=== PATIENT | female | born 1940 | race Caucasian/White ===

== ENCOUNTER 2016-08-10 07:15 | Outpatient (CLI) ==
[2016-04-07 10:59] VITALS: BMI 24.0
[2016-08-10 07:44] LABS: BASOPHILS # (AUTO) 0.1 K/uL (0-0.2); BASOPHILS % (AUTO) 0.9 % (0.0-3.0); EOSINOPHILS # (AUTO) 0.7 K/ul (0.0-0.7); EOSINOPHILS % (AUTO) 6.9 % (0.0-7.0); HEMATOCRIT 35.3 % (37.0-47.0); HEMOGLOBIN 11.2 g/dl (12.0-16.0); IMMATURE GRANULOCYTE % (AUTO) 0.2 % (0.0-5.0); LYMPHOCYTES # (AUTO) 2.5 K/uL (0.60-3.4); LYMPHOCYTES % (AUTO) 25.9 (10.0-50.0); MEAN CORPUSCULAR HEMOGLOBIN 29.8 pg (27.0-31.0); MEAN CORPUSCULAR HGB CONC 31.7 (31.8-35.4); MEAN CORPUSCULAR VOLUME 93.9 fl (81.0-99.0); MONOCYTES # (AUTO) 0.5 K/uL (0.4-2.0); MONOCYTES % (AUTO) 5.2 (0-10); NEUTROPHILS # (AUTO) 5.9 K/ul (2.0-6.9); NEUTROPHILS % (AUTO) 60.9; PLATELET COUNT 364 10^3/uL (140-440); RED BLOOD COUNT 3.76 10^6/ul (4.20-5.40); WHITE BLOOD COUNT 9.73 K/ul (4.6-10.2)
[2016-08-10 07:57] LABS: BILIRUBIN,URINE Negative (NEGATIVE); KETONES,URINE Negative (NEGATIVE); LEUKOCYTE ESTERASE ,URINE Trace (NEGATIVE); NITRITE,URINE Negative (NEGATIVE); PROTEIN,URINE Negative (NEGATIVE); URINE, BLOOD Negative (NEGATIVE)
[2016-08-10 07:59] LABS: ADD URINE MICROSCOPIC YES
[2016-08-10 08:01] LABS: ALBUMIN 3.4 g/dL (3.4-5.0); ALBUMIN/GLOBULIN RATIO 0.94; ANION GAP 15.9; BILIRUBIN,TOTAL 0.23 mg/dL (0.00-1.20); BUN/CREATININE RATIO 9.39; CALCIUM 9.1 mg/dL (8.2-10.2); CHOL/HDL RATIO 4.7 (4.5-5.5); CREATININE 1.49 mg/dL (0.60-1.30); POTASSIUM 3.9 mmol/L (3.5-5.10)
== END 2016-08-10 07:16 | disposition home or self-care (01) ==
LOC: LAB 07:15
PROVIDERS: ATTEND Family Medicine
DX: E78.5 Hyperlipidemia, unspecified (principal); I10 Essential (primary) hypertension; I25.10 Atherosclerotic heart disease of native coronary artery without angina pectoris; E87.6 Hypokalemia; E55.9 Vitamin D deficiency, unspecified; N39.0 Urinary tract infection, site not specified; N18.9 Chronic kidney disease, unspecified; D63.1 Anemia in chronic kidney disease
CPT/HCPCS: 36415; 80053; 80061; 81001; 82306; 85025

== ENCOUNTER 2016-09-09 06:24 | Outpatient (CLI) ==
[2016-04-07 10:59] VITALS: BMI 24.0
[2016-09-09 06:43] LABS: BASOPHILS # (AUTO) 0.1 K/uL (0-0.2); BASOPHILS % (AUTO) 0.7 % (0.0-3.0); EOSINOPHILS # (AUTO) 0.4 K/ul (0.0-0.7); EOSINOPHILS % (AUTO) 3.9 % (0.0-7.0); HEMATOCRIT 32.5 % (37.0-47.0); HEMOGLOBIN 10.8 g/dl (12.0-16.0); IMMATURE GRANULOCYTE % (AUTO) 0.3 % (0.0-5.0); LYMPHOCYTES # (AUTO) 2.8 K/uL (0.60-3.4); LYMPHOCYTES % (AUTO) 30.6 (10.0-50.0); MEAN CORPUSCULAR HGB CONC 33.2 (31.8-35.4); MEAN CORPUSCULAR VOLUME 90.3 fl (81.0-99.0); MONOCYTES # (AUTO) 0.8 K/uL (0.4-2.0); MONOCYTES % (AUTO) 8.3 (0-10); NEUTROPHILS # (AUTO) 5.1 K/ul (2.0-6.9); NEUTROPHILS % (AUTO) 56.2; PLATELET COUNT 344 10^3/uL (140-440); WHITE BLOOD COUNT 9.12 K/ul (4.6-10.2)
[2016-09-09 06:44] LABS: BILIRUBIN,URINE Negative (NEGATIVE); KETONES,URINE Negative (NEGATIVE); LEUKOCYTE ESTERASE ,URINE Trace (NEGATIVE); NITRITE,URINE Negative (NEGATIVE); PH,URINE 5.5 (5-9); PROTEIN,URINE Negative (NEGATIVE); URINE, BLOOD Negative (NEGATIVE)
[2016-09-09 06:45] LABS: ADD URINE MICROSCOPIC YES
[2016-09-09 06:50] LABS: BACTERIA,URINE TRACE (NOT PRESENT)
[2016-09-09 07:01] LABS: ALBUMIN/GLOBULIN RATIO 0.86; ANION GAP 16.5; BILIRUBIN,TOTAL 0.3 mg/dL (0.00-1.20); BUN/CREATININE RATIO 13.79; CALCIUM 9.1 mg/dL (8.2-10.2); CHOL/HDL RATIO 4.9 (4.5-5.5); CREATININE 1.45 mg/dL (0.60-1.30); POTASSIUM 3.5 mmol/L (3.5-5.10); TOTAL PROTEIN 6.5 g/dL (5.8-8.1)
== END 2016-09-09 06:25 | disposition home or self-care (01) ==
LOC: LAB 06:24
PROVIDERS: ATTEND Family Medicine
DX: I10 Essential (primary) hypertension (principal); E78.5 Hyperlipidemia, unspecified; I25.10 Atherosclerotic heart disease of native coronary artery without angina pectoris; N18.9 Chronic kidney disease, unspecified; I73.9 Peripheral vascular disease, unspecified; R73.9 Hyperglycemia, unspecified; Z79.899 Other long term (current) drug therapy
CPT/HCPCS: 36415; 80053; 80061; 81001; 85025

== ENCOUNTER 2016-10-01 06:03 | Outpatient (CLI) ==
[2016-04-07 10:59] VITALS: BMI 24.0
[2016-10-01 06:41] LABS: BASOPHILS # (AUTO) 0.1 K/uL (0-0.2); BASOPHILS % (AUTO) 0.8 % (0.0-3.0); EOSINOPHILS # (AUTO) 0.7 K/ul (0.0-0.7); EOSINOPHILS % (AUTO) 6.9 % (0.0-7.0); HEMATOCRIT 32.7 % (37.0-47.0); HEMOGLOBIN 10.7 g/dl (12.0-16.0); IMMATURE GRANULOCYTE % (AUTO) 0.4 % (0.0-5.0); LYMPHOCYTES # (AUTO) 2.7 K/uL (0.60-3.4); MEAN CORPUSCULAR HEMOGLOBIN 30.1 pg (27.0-31.0); MEAN CORPUSCULAR HGB CONC 32.7 (31.8-35.4); MEAN CORPUSCULAR VOLUME 91.9 fl (81.0-99.0); MONOCYTES # (AUTO) 0.6 K/uL (0.4-2.0); MONOCYTES % (AUTO) 5.6 (0-10); NEUTROPHILS # (AUTO) 6.3 K/ul (2.0-6.9); NEUTROPHILS % (AUTO) 60.3; PLATELET COUNT 371 10^3/uL (140-440); RED BLOOD COUNT 3.56 10^6/ul (4.20-5.40); WHITE BLOOD COUNT 10.47 K/ul (4.6-10.2)
[2016-10-01 07:02] LABS: BILIRUBIN,URINE Negative (NEGATIVE); KETONES,URINE Negative (NEGATIVE); LEUKOCYTE ESTERASE ,URINE Negative (NEGATIVE); NITRITE,URINE Negative (NEGATIVE); PH,URINE 5.5 (5-9); PROTEIN,URINE Negative (NEGATIVE); URINE, BLOOD Negative (NEGATIVE)
[2016-10-01 07:08] LABS: ADD URINE MICROSCOPIC NO
[2016-10-01 07:34] LABS: BILIRUBIN,TOTAL 0.24 mg/dL (0.00-1.20); CALCIUM 8.8 mg/dL (8.2-10.2)
[2016-10-01 10:36] LABS: ALBUMIN/GLOBULIN RATIO 0.94; BUN/CREATININE RATIO 9.84; CREATININE 1.32 mg/dL (0.60-1.30); TOTAL PROTEIN 6.2 g/dL (5.8-8.1)
[2016-10-01 11:17] LABS: CHOL/HDL RATIO 4.7 (4.5-5.5)
== END 2016-10-01 06:04 | disposition home or self-care (01) ==
LOC: CAR 06:03
PROVIDERS: ATTEND Family Medicine
DX: R53.1 Weakness (principal); E78.5 Hyperlipidemia, unspecified; I10 Essential (primary) hypertension; R73.9 Hyperglycemia, unspecified; E55.9 Vitamin D deficiency, unspecified; N18.9 Chronic kidney disease, unspecified; D63.1 Anemia in chronic kidney disease; I25.10 Atherosclerotic heart disease of native coronary artery without angina pectoris; R19.7 Diarrhea, unspecified
CPT/HCPCS: 80053; 80061; 81001; 82306; 84439; 84443; 85025; 93005; 93010

== ENCOUNTER 2016-11-09 09:00 | Outpatient (CLI) ==
[2016-04-07 10:59] VITALS: BMI 24.0
[2016-11-09 09:13] LABS: BASOPHILS # (AUTO) 0.1 K/uL (0-0.2); BASOPHILS % (AUTO) 1.2 % (0.0-3.0); EOSINOPHILS % (AUTO) 11.2 % (0.0-7.0); HEMATOCRIT 33.4 % (37.0-47.0); HEMOGLOBIN 11.1 g/dl (12.0-16.0); IMMATURE GRANULOCYTE % (AUTO) 0.3 % (0.0-5.0); LYMPHOCYTES # (AUTO) 2.4 K/uL (0.60-3.4); LYMPHOCYTES % (AUTO) 25.7 (10.0-50.0); MEAN CORPUSCULAR HEMOGLOBIN 30.7 pg (27.0-31.0); MEAN CORPUSCULAR HGB CONC 33.2 (31.8-35.4); MEAN CORPUSCULAR VOLUME 92.5 fl (81.0-99.0); MONOCYTES # (AUTO) 0.6 K/uL (0.4-2.0); MONOCYTES % (AUTO) 6.1 (0-10); NEUTROPHILS # (AUTO) 5.1 K/ul (2.0-6.9); NEUTROPHILS % (AUTO) 55.5; PLATELET COUNT 336 10^3/uL (140-440); RED BLOOD COUNT 3.61 10^6/ul (4.20-5.40); WHITE BLOOD COUNT 9.18 K/ul (4.6-10.2)
[2016-11-09 09:17] LABS: ADD URINE MICROSCOPIC NO; BILIRUBIN,URINE Negative (NEGATIVE); KETONES,URINE Negative (NEGATIVE); LEUKOCYTE ESTERASE ,URINE Negative (NEGATIVE); NITRITE,URINE Negative (NEGATIVE); PH,URINE 5.5 (5-9); PROTEIN,URINE Negative (NEGATIVE); URINE, BLOOD Negative (NEGATIVE)
[2016-11-09 09:33] LABS: ALBUMIN 3.4 g/dL (3.4-5.0); ANION GAP 13.6; BILIRUBIN,TOTAL 0.27 mg/dL (0.00-1.20); BUN/CREATININE RATIO 14.86; CALCIUM 9.3 mg/dL (8.2-10.2); CHOL/HDL RATIO 3.6 (4.5-5.5); CREATININE 1.48 mg/dL (0.60-1.30); POTASSIUM 4.6 mmol/L (3.5-5.10); TOTAL PROTEIN 6.8 g/dL (5.8-8.1)
== END 2016-11-09 09:01 | disposition home or self-care (01) ==
LOC: LAB 09:00
PROVIDERS: ATTEND Family Medicine
DX: I10 Essential (primary) hypertension (principal); N18.9 Chronic kidney disease, unspecified; D63.1 Anemia in chronic kidney disease; R73.9 Hyperglycemia, unspecified; I73.9 Peripheral vascular disease, unspecified; I65.23 Occlusion and stenosis of bilateral carotid arteries; I71.4 Abdominal aortic aneurysm, without rupture; I25.10 Atherosclerotic heart disease of native coronary artery without angina pectoris; Z79.899 Other long term (current) drug therapy
CPT/HCPCS: 36415; 80053; 80061; 81001; 85025

== ENCOUNTER 2017-01-12 08:53 | Outpatient (CLI) | payer OTHER ==
[2016-04-07 10:59] VITALS: BMI 24.0
--- NOTE | 2017-01-12 09:44 | US ---
EXAM: Ultrasound of the abdominal aorta. History: Follow-up abdominal aortic aneurysm. Comparison: Ultrasound of the abdominal aorta 05/21/2016, CT abdomen pelvis 04/07/2016 Technique: Multiple sonographic images through the abdominal aorta were obtained. Color duplex Dop pler was used to interrogate vascular flow. Findings: The proximal abdominal aorta measures 1.8 cm x 2.0 cm which previously measured 1.8 cm x 2.1 cm. The mid abdominal aorta measures 4.7 cm x 4.3 cm which previously measured 3.8 cm x 4.2 cm. The distal abdominal aorta measures 3.6 cm x 3.1 cm which previously measured 3.6 cm x 3.1 cm. The right common iliac artery measures 1.6 cm x 1.4 cm which previously measured 1.4 cm x 1.7 cm. The left common iliac artery measures 1.6 cm x 1.7 cm which previously measured 1.7 cm x 1.7 cm. Impression: 4.7 cm infrarenal abdominal aortic aneurysm is slightly increased in size compared to t he prior study and is partially thrombosed. Consider correlation with CTA to evaluate for the extent of thrombosis.
== END 2017-01-12 08:54 | disposition home or self-care (01) ==
LOC: RAD 08:53
PROVIDERS: ATTEND Family Medicine
DX: I71.4 Abdominal aortic aneurysm, without rupture (principal)
CPT/HCPCS: 76775

== ENCOUNTER 2017-01-15 07:16 | Outpatient (CLI) | payer OTHER ==
[2016-04-07 10:59] VITALS: BMI 24.0
[2017-01-15 07:51] LABS: BASOPHILS # (AUTO) 0.1 K/uL (0-0.2); BASOPHILS % (AUTO) 0.9 % (0.0-3.0); BILIRUBIN,URINE Negative (NEGATIVE); EOSINOPHILS # (AUTO) 0.5 K/ul (0.0-0.7); HEMATOCRIT 32.4 % (37.0-47.0); HEMOGLOBIN 10.9 g/dl (12.0-16.0); IMMATURE GRANULOCYTE % (AUTO) 0.3 % (0.0-5.0); KETONES,URINE Negative (NEGATIVE); LEUKOCYTE ESTERASE ,URINE Negative (NEGATIVE); LYMPHOCYTES # (AUTO) 2.1 K/uL (0.60-3.4); LYMPHOCYTES % (AUTO) 26.7 (10.0-50.0); MEAN CORPUSCULAR HEMOGLOBIN 30.5 pg (27.0-31.0); MEAN CORPUSCULAR HGB CONC 33.6 (31.8-35.4); MEAN CORPUSCULAR VOLUME 90.8 fl (81.0-99.0); MONOCYTES # (AUTO) 0.4 K/uL (0.4-2.0); MONOCYTES % (AUTO) 5.6 (0-10); NEUTROPHILS # (AUTO) 4.6 K/ul (2.0-6.9); NEUTROPHILS % (AUTO) 59.5; NITRITE,URINE Negative (NEGATIVE); PH,URINE 5.5 (5-9); PLATELET COUNT 388 10^3/uL (140-440); PROTEIN,URINE Negative (NEGATIVE); RED BLOOD COUNT 3.57 10^6/ul (4.20-5.40); URINE, BLOOD Trace-intact (NEGATIVE); WHITE BLOOD COUNT 7.74 K/ul (4.6-10.2)
[2017-01-15 08:12] LABS: ADD URINE MICROSCOPIC YES
[2017-01-15 08:28] LABS: ALBUMIN 3.2 g/dL (3.4-5.0); ALBUMIN/GLOBULIN RATIO 0.84; ANION GAP 14.3; BILIRUBIN,TOTAL 0.2 mg/dL (0.00-1.20); BUN/CREATININE RATIO 14.28; CALCIUM 9.2 mg/dL (8.2-10.2); CHOL/HDL RATIO 4.6 (4.5-5.5); CREATININE 1.47 mg/dL (0.60-1.30); POTASSIUM 4.3 mmol/L (3.5-5.10)
== END 2017-01-15 07:17 | disposition home or self-care (01) ==
LOC: LAB 07:16
PROVIDERS: ATTEND Family Medicine
DX: I10 Essential (primary) hypertension (principal); E55.9 Vitamin D deficiency, unspecified; E78.5 Hyperlipidemia, unspecified; R73.9 Hyperglycemia, unspecified; I71.4 Abdominal aortic aneurysm, without rupture; I25.10 Atherosclerotic heart disease of native coronary artery without angina pectoris; I65.29 Occlusion and stenosis of unspecified carotid artery; N18.9 Chronic kidney disease, unspecified; Z79.899 Other long term (current) drug therapy
CPT/HCPCS: 36415; 80053; 80061; 81001; 82306; 84439; 84443; 85025

== ENCOUNTER 2017-03-30 06:43 | Outpatient (CLI) | payer OTHER ==
[2016-04-07 10:59] VITALS: BMI 24.0
[2017-03-30 07:10] LABS: BASOPHILS # (AUTO) 0.1 K/uL (0-0.2); BASOPHILS % (AUTO) 0.9 % (0.0-3.0); EOSINOPHILS # (AUTO) 0.8 K/ul (0.0-0.7); HEMATOCRIT 34.3 % (37.0-47.0); HEMOGLOBIN 11.8 g/dl (12.0-16.0); IMMATURE GRANULOCYTE % (AUTO) 0.2 % (0.0-5.0); MEAN CORPUSCULAR HEMOGLOBIN 30.6 pg (27.0-31.0); MEAN CORPUSCULAR HGB CONC 34.4 (31.8-35.4); MEAN CORPUSCULAR VOLUME 88.9 fl (81.0-99.0); MONOCYTES # (AUTO) 0.5 K/uL (0.4-2.0); NEUTROPHILS # (AUTO) 5.2 K/ul (2.0-6.9); NEUTROPHILS % (AUTO) 60.9; PLATELET COUNT 341 10^3/uL (140-440); RED BLOOD COUNT 3.86 10^6/ul (4.20-5.40); WHITE BLOOD COUNT 8.62 K/ul (4.6-10.2)
[2017-03-30 07:54] LABS: ALBUMIN 3.7 g/dL (3.4-5.0); ANION GAP 14.7; BILIRUBIN,TOTAL 0.39 mg/dL (0.00-1.20); BUN/CREATININE RATIO 13.98; CALCIUM 9.6 mg/dL (8.2-10.2); CHOL/HDL RATIO 4.2 (4.5-5.5); CREATININE 1.43 mg/dL (0.60-1.30); POTASSIUM 4.7 mmol/L (3.5-5.10); TOTAL PROTEIN 7.4 g/dL (5.8-8.1)
[2017-03-30 09:23] LABS: BILIRUBIN,URINE Negative (NEGATIVE); KETONES,URINE Negative (NEGATIVE); LEUKOCYTE ESTERASE ,URINE Negative (NEGATIVE); NITRITE,URINE Negative (NEGATIVE); PH,URINE 5.5 (5-9); PROTEIN,URINE Negative (NEGATIVE); URINE, BLOOD Trace-intact (NEGATIVE)
[2017-03-30 09:25] LABS: ADD URINE MICROSCOPIC YES
== END 2017-03-30 06:44 | disposition home or self-care (01) ==
LOC: LAB 06:43
PROVIDERS: ATTEND Family Medicine
DX: E55.9 Vitamin D deficiency, unspecified (principal); I12.9 Hypertensive chronic kidney disease with stage 1 through stage 4 chronic kidney disease, or unspecified chronic kidney disease; N18.9 Chronic kidney disease, unspecified; D63.1 Anemia in chronic kidney disease; E78.5 Hyperlipidemia, unspecified; I71.4 Abdominal aortic aneurysm, without rupture; R73.9 Hyperglycemia, unspecified; I25.10 Atherosclerotic heart disease of native coronary artery without angina pectoris; Z79.899 Other long term (current) drug therapy
CPT/HCPCS: 36415; 80053; 80061; 81001; 82306; 83036; 85025

== ENCOUNTER 2017-06-22 06:54 | Outpatient (CLI) ==
[2016-04-07 10:59] VITALS: BMI 24.0
[2017-06-22 07:35] LABS: BASOPHILS # (AUTO) 0.1 K/uL (0-0.2); BASOPHILS % (AUTO) 0.6 % (0.0-3.0); EOSINOPHILS # (AUTO) 0.7 K/ul (0.0-0.7); EOSINOPHILS % (AUTO) 6.2 % (0.0-7.0); HEMATOCRIT 33.3 % (37.0-47.0); HEMOGLOBIN 11.1 g/dl (12.0-16.0); IMMATURE GRANULOCYTE % (AUTO) 0.2 % (0.0-5.0); LYMPHOCYTES # (AUTO) 2.4 K/uL (0.60-3.4); LYMPHOCYTES % (AUTO) 21.7 (10.0-50.0); MEAN CORPUSCULAR HEMOGLOBIN 30.6 pg (27.0-31.0); MEAN CORPUSCULAR HGB CONC 33.3 (31.8-35.4); MEAN CORPUSCULAR VOLUME 91.7 fl (81.0-99.0); MONOCYTES # (AUTO) 0.5 K/uL (0.4-2.0); MONOCYTES % (AUTO) 4.9 (0-10); NEUTROPHILS # (AUTO) 7.2 K/ul (2.0-6.9); NEUTROPHILS % (AUTO) 66.4; PLATELET COUNT 315 10^3/uL (140-440); RED BLOOD COUNT 3.63 10^6/ul (4.20-5.40); WHITE BLOOD COUNT 10.86 K/ul (4.6-10.2)
[2017-06-22 08:18] LABS: ALBUMIN 3.3 g/dL (3.4-5.0); ALBUMIN/GLOBULIN RATIO 0.92; BILIRUBIN,TOTAL 0.23 mg/dL (0.00-1.20); BUN/CREATININE RATIO 13.51; CALCIUM 9.2 mg/dL (8.2-10.2); CHOL/HDL RATIO 4.4 (4.5-5.5); CREATININE 1.48 mg/dL (0.60-1.30); TOTAL PROTEIN 6.9 g/dL (5.8-8.1)
--- NOTE | 2017-06-22 09:12 | US ---
EXAM: ULTRASOUND RETROPERITONEAL LIMITED ABDOMINAL AORTA. HISTORY: Abdominal aortic aneurysm COMPARISON: 01/12/2017 TECHNIQUE: Rose scale and color and spectral doppler images. FINDINGS: Abdominal aortic measurements in centimeters as follows: Proximal, 2.2 x 2 Mid, 4.2 x 3.4 Distal, 2.7 x 2.6 Mural thrombus and atherosclerotic calcifications seen within the area fusiform dilatation. Color fl ow is present although the amount of thrombus appears significant. Arterial wave forms were obtained throughout the aorta. Right iliac artery measures 1.6 x 1.6 cm in diameter. Left iliac artery measures 1.5 x 1.4 cm in anderson meter. IMPRESSION: 1. Fusiform infrarenal abdominal aortic aneurysm measuring up to 4.2 x 3.4 cm, not significantly gricelda nged when accounting for differences in technique. 2. Extensive mural thrombus with somewhat decreased color flow within the infrarenal abdominal aorta may be accentuated by technique. Correlation with contrast enhanced abdominal CT should be consider ed to further evaluate the blood flowing lumen.
[2017-06-22 12:00] LABS: BILIRUBIN,URINE Negative (NEGATIVE); KETONES,URINE Negative (NEGATIVE); LEUKOCYTE ESTERASE ,URINE Trace (NEGATIVE); NITRITE,URINE Negative (NEGATIVE); PH,URINE 5.5 (5-9); PROTEIN,URINE Negative (NEGATIVE); URINE, BLOOD Negative (NEGATIVE)
[2017-06-22 12:11] LABS: ADD URINE MICROSCOPIC YES
== END 2017-06-22 06:55 | disposition home or self-care (01) ==
LOC: RAD 06:54
PROVIDERS: ATTEND Family Medicine
DX: E78.5 Hyperlipidemia, unspecified (principal); I10 Essential (primary) hypertension; E55.9 Vitamin D deficiency, unspecified; R73.9 Hyperglycemia, unspecified; N18.9 Chronic kidney disease, unspecified; D63.1 Anemia in chronic kidney disease; I25.10 Atherosclerotic heart disease of native coronary artery without angina pectoris; I71.4 Abdominal aortic aneurysm, without rupture
CPT/HCPCS: 36415; 76775; 80053; 80061; 81001; 82306; 85025; 86140

== ENCOUNTER 2017-08-10 07:21 | Outpatient (CLI) ==
[2016-04-07 10:59] VITALS: BMI 24.0
== END 2017-08-10 07:22 | disposition home or self-care (01) ==
LOC: LAB 07:21
PROVIDERS: ATTEND Family Medicine
DX: E78.5 Hyperlipidemia, unspecified (principal); N18.9 Chronic kidney disease, unspecified; D63.1 Anemia in chronic kidney disease; I71.4 Abdominal aortic aneurysm, without rupture; I67.9 Cerebrovascular disease, unspecified; I25.10 Atherosclerotic heart disease of native coronary artery without angina pectoris
CPT/HCPCS: 36415; 80053; 80061; 81001; 85025

== ENCOUNTER 2017-11-02 08:12 | Outpatient (CLI) | payer OTHER ==
[2016-04-07 10:59] VITALS: BMI 24.0
--- NOTE | 2017-11-02 09:22 | US ---
EXAM: ULTRASOUND AORTA HISTORY: Aortic aneurysm FINDINGS: Ultrasound aorta. Real time cano-scale ultrasound, color Doppler imaging and spectral kemi lysis performed. The AP and transverse measurements respectively, in centimeters are as follows: Proximal: 2.0 x 2.38 Mid: 4.8 x 4.5 Distal: 3.2 x 3.0 Right iliac: 1.9 x 1.8 Left iliac: 1.6 x 1.6 IMPRESSION: Aneurysmal caliber of the infrarenal aorta measuring up to 4.8 cm. This is compared to 4.5 cm on prior study of 06/22/2017.
== END 2017-11-02 08:13 | disposition home or self-care (01) ==
LOC: RAD 08:12
PROVIDERS: ATTEND Family Medicine
DX: I71.4 Abdominal aortic aneurysm, without rupture (principal); I25.10 Atherosclerotic heart disease of native coronary artery without angina pectoris; I67.9 Cerebrovascular disease, unspecified; E78.5 Hyperlipidemia, unspecified; N18.3 Chronic kidney disease, stage 3 (moderate); D63.1 Anemia in chronic kidney disease; R73.9 Hyperglycemia, unspecified; Z79.899 Other long term (current) drug therapy
CPT/HCPCS: 36415; 76775; 80053; 80061; 81001; 82306; 85025

== ENCOUNTER 2018-02-15 06:36 | Outpatient (CLI) ==
[2016-04-07 10:59] VITALS: BMI 24.0
== END 2018-02-15 06:37 | disposition home or self-care (01) ==
LOC: LAB 06:36
PROVIDERS: ATTEND Family Medicine
DX: E78.5 Hyperlipidemia, unspecified (principal); I10 Essential (primary) hypertension; M18.9 Osteoarthritis of first carpometacarpal joint, unspecified; I25.10 Atherosclerotic heart disease of native coronary artery without angina pectoris; Z79.899 Other long term (current) drug therapy
CPT/HCPCS: 36415; 80053; 80061; 81001; 85025; 86140

== ENCOUNTER 2018-04-19 07:06 | Outpatient (CLI) | payer OTHER ==
[2016-04-07 10:59] VITALS: BMI 24.0
== END 2018-04-19 07:07 | disposition home or self-care (01) ==
LOC: LAB 07:06
PROVIDERS: ATTEND Family Medicine
DX: I25.10 Atherosclerotic heart disease of native coronary artery without angina pectoris (principal); I65.29 Occlusion and stenosis of unspecified carotid artery; I10 Essential (primary) hypertension; N18.9 Chronic kidney disease, unspecified; R53.83 Other fatigue; D64.9 Anemia, unspecified; E55.9 Vitamin D deficiency, unspecified; Z79.899 Other long term (current) drug therapy
CPT/HCPCS: 36415; 80053; 80061; 81001; 82306; 82607; 82728; 82746; 83540; 83550; 84439; 84443; 84466; 85025; 85045

== ENCOUNTER 2018-05-23 07:59 | Outpatient (CLI) | payer OTHER ==
[2016-04-07 10:59] VITALS: BMI 24.0
== END 2018-05-23 08:00 | disposition home or self-care (01) ==
LOC: LAB 07:59
PROVIDERS: ATTEND Family Medicine
DX: E78.5 Hyperlipidemia, unspecified (principal); I10 Essential (primary) hypertension; N18.9 Chronic kidney disease, unspecified; D63.1 Anemia in chronic kidney disease; I25.10 Atherosclerotic heart disease of native coronary artery without angina pectoris; I71.4 Abdominal aortic aneurysm, without rupture; Z79.899 Other long term (current) drug therapy
CPT/HCPCS: 36415; 80053; 80061; 85025

== ENCOUNTER 2018-10-04 09:31 | Outpatient (CLI) | payer OTHER ==
[2016-04-07 10:59] VITALS: BMI 24.0
--- NOTE | 2018-10-04 10:07 | CT ---
EXAM: CT ABDOMEN AND PELVIS HISTORY: Abdominal aortic aneurysm TECHNIQUE: CT abdomen and pelvis without intravenous contrast. Images were reconstructed using 5 mm section thickness. Reformations were prepared. COMPARISON: 04/07/2016 FINDINGS: Diagnostic limitations may exist without including contrast enhanced images. A few scattered tiny lo w attenuation lesions of the liver appear grossly stable, probable cysts. Spleen is within normal li mits. There is a small gallstone present. Early fatty lobulation of the pancreas. Adrenal glands a re unremarkable. Several cystic masses of the renal cortices bilaterally largest on the right at abo ut 2.5 cm. These were seen previously and may be minimally enlarged. There is no hydronephrosis. M oderate atherosclerotic disease is present. There is fusiform aneurysmal caliber of the infrarenal a joseph measuring up to 3.6 cm compared to 3.3 cm previously. An appendix is not seen. No right lower quadrant inflammation. Bowel gas pattern is within normal l imits. Uterus is present. Urinary bladder is unremarkable. There is no ascites. Ventral abdominal wall is intact. Bones reveal moderate degenerative changes of the lower spine and there is mild scoliosis. Lung bases are clear. IMPRESSION: 1. Atherosclerotic disease. Fusiform aneurysmal caliber of the infrarenal aorta currently measuring up to 3.6 cm compared to 3.3 cm previously using similar measuring technique. 2. Cholelithiasis. 3. Probable tiny liver cyst. 4. Grossly stable renal cysts.
== END 2018-10-04 09:32 | disposition home or self-care (01) ==
LOC: RAD 09:31
PROVIDERS: ATTEND Family Medicine
DX: I71.4 Abdominal aortic aneurysm, without rupture (principal)

== ENCOUNTER 2018-11-04 07:09 | Outpatient (CLI) ==
[2016-04-07 10:59] VITALS: BMI 24.0
== END 2018-11-04 07:10 | disposition home or self-care (01) ==
LOC: LAB 07:09
PROVIDERS: ATTEND Internal Medicine Nephrology
DX: N18.4 Chronic kidney disease, stage 4 (severe) (principal); D63.1 Anemia in chronic kidney disease; I10 Essential (primary) hypertension; Z79.899 Other long term (current) drug therapy; E78.5 Hyperlipidemia, unspecified; R73.9 Hyperglycemia, unspecified
CPT/HCPCS: 36415; 80053; 81001; 82306; 82570; 83735; 83970; 84100; 84156; 84550; 85027

== ENCOUNTER 2019-04-10 08:39 | Outpatient (CLI) | payer OTHER ==
[2016-04-07 10:59] VITALS: BMI 24.0
--- NOTE | 2019-04-10 12:39 | CT ---
EXAM: CT ABDOMEN AND PELVIS HISTORY: Abdominal aortic aneurysm, follow-up TECHNIQUE: CT abdomen and pelvis without intravenous contrast. Images were reconstructed using 5 mm section thickness. Reformations were prepared. COMPARISON: 10/04/2018 FINDINGS: The liver has a scattered tiny low attenuation foci which appear stable although difficult to see on unenhanced exam. These are also grossly stable since an older CT dated 04/07/2016 and may represent cysts. Spleen is relatively small. A few tiny gallstones are present. No evidence of gallbladder i nflammation. A few small coarse calcifications in the pancreatic head are suggested similar to that previously seen. The adrenal glands are within normal limits. Left kidney is smaller than contralat eral. Renal cystic masses are stable suggesting a cysts. There is no hydronephrosis. Moderate athe rosclerotic disease. Redemonstration of fusiform aneurysmal caliber of the infrarenal aorta measurin g up to 3.6 cm unchanged since previous exam. Stomach is within normal limits. The cecum lies in the left upper quadrant similar to that seen on p rior studies including as far back as 2015. Normal appendix. No evidence of bowel obstruction. Uri nary bladder is unremarkable. The uterus is either small or absent. There is no ascites. There is a tiny fatty umbilical hernia with a transverse neck of about 1.5 cm, stable. There is asym metric breast density with a preponderance of soft tissue opacity on the right breast, deep to the ni pple with a few coarse calcifications. This region was not included within the field of view on the 10/04/2018 exam. Older exams including 05/22/2015 reveal somewhat of a similar appearance. Bones ap pear demineralized. There is mild scoliosis and moderate degenerative changes of the spine. Lung ba ses are clear. No pneumoperitoneum. IMPRESSION: 1. Stable fusiform aneurysmal caliber of the infrarenal aorta at 3.6 cm. Moderate atherosclerotic d isease. 2. Asymmetric breast density deep to the right nipple. See last paragraph of report. Assure the pa tient is up-to-date on screening mammography. 3. Gallstones without gallbladder inflammation. 4. Stable tiny cystic appearing foci within the liver, possible cysts. 5. Cecum lies in the left upper quadrant, similar to that seen on prior studies. No bowel obstructi on. 6. Renal cysts. 7. A few pancreatic head calcifications could indicate chronic pancreatitis.
== END 2019-04-10 08:40 | disposition home or self-care (01) ==
LOC: RAD 08:39
PROVIDERS: ATTEND Family Medicine
DX: I71.4 Abdominal aortic aneurysm, without rupture (principal)